=== PATIENT | female | born 1960 | race African-American/Black ===

== ENCOUNTER 2019-03-26 07:24 | Day surgery (SDC) | payer MEDICARE, MEDICAID ==
[~2019-03-26] VITALS: Ht 160 cm; Wt 104.1 kg
[~2019-03-26 07:24] MED LIST: ALBU8HFA IH; AMLO5TAB9 PO; ARFO15VI2 NEB; ATOR40TA28 PO; BELI120V IV; BRIV100T PO; BUME1TAB34 PO; CALC-1085 PO; DULO60CA44 PO; EPIN0.3P19 IM; FLUT1AER IH; FOLI1 PO; INSU200I4 SQ; ISOS30TA6 PO; LACO100 PO; METF-960 PO; METO50 PO; MONT10TA21 PO; NALO25TA PO; NORT25 PO; SLOWK8 PO; VALS160T2 PO; XALA2.5OS OU
[2019-03-26] MEDS ORDERED: PROPOFOL 1% 20 ML VIAL IVP ONE (07:25)
[2019-03-26] MEDS ORDERED: LIDOCAINE/PF 2% 5 ML VIAL IM ONE (07:25)
[2019-03-26] MEDS ORDERED: SODIUM CHLORIDE 0.9% 1,000 ML IV ONE ×2 (07:44→08:00)
[2019-03-26 09:25] LABS: GLUCOMETER DEV NAME(LOC) SDS.; GLUCOSE,POINT OF CARE 112 MG/DL (70-110)
[2019-03-26] MEDS ORDERED: OXYGEN THERAPY IH SCH (20:00)
== END 2019-03-26 12:30 | disposition home or self-care (01) ==
LOC: SURGERY 07:24
PROVIDERS: ATTEND Specialist
DX: K22.2 Esophageal obstruction (principal); K29.70 Gastritis, unspecified, without bleeding; K44.9 Diaphragmatic hernia without obstruction or gangrene; N18.9 Chronic kidney disease, unspecified; F32.9 Major depressive disorder, single episode, unspecified; E78.00 Pure hypercholesterolemia, unspecified; I12.9 Hypertensive chronic kidney disease with stage 1 through stage 4 chronic kidney disease, or unspecified chronic kidney disease; M32.9 Systemic lupus erythematosus, unspecified; E11.22 Type 2 diabetes mellitus with diabetic chronic kidney disease; Z79.899 Other long term (current) drug therapy; Z91.040 Latex allergy status
CPT/HCPCS: 43249; 82962; 93005; C1769; J2704; J3490; J7030

== ENCOUNTER 2019-04-01 13:57 | Emergency (ER) | payer MEDICARE, MEDICAID ==
[~2019-04-01] VITALS: Ht 160 cm; Wt 102.3 kg
[2019-04-01 14:59] LABS: GLUCOSE,POINT OF CARE 120 MG/DL (70-110)
[2019-04-01 20:21] VITALS: BP 158/89
== END 2019-04-01 21:00 | disposition home or self-care (01) ==
LOC: EMS 13:59
DX: R05 Cough (principal); I11.0 Hypertensive heart disease with heart failure; I50.9 Heart failure, unspecified; E11.9 Type 2 diabetes mellitus without complications; E78.00 Pure hypercholesterolemia, unspecified; Z88.0 Allergy status to penicillin; Z88.1 Allergy status to other antibiotic agents; Z88.5 Allergy status to narcotic agent; Z88.8 Allergy status to other drugs, medicaments and biological substances; Z91.013 Allergy to seafood; Z79.899 Other long term (current) drug therapy